=== PATIENT | female | born 1970 | race Caucasian/White ===

== ENCOUNTER 2019-04-25 01:05 | Emergency (ER) | payer OTHER ==
[~2019-04-25] VITALS: Ht 160 cm; Wt 70.3 kg
[2019-04-25 01:23] VITALS: BP 153/77
--- NOTE | 2019-04-25 01:23 | NUR ---
ABD: TENDERNESS ON RIGH AND EPIGASTRIC REGION, ACITVE BS, SOFT, ROUND.
--- NOTE | 2019-04-25 01:23 | NUR ---
JAZIEL C/O LEFT BACK AND ABD PAIN X 1 WEEK. PT GOT D/C FROM [facility] TODAY AND SAID SHE WAS STILL HAVING PAIN. Mar WENT TO [facility] FOR FEVER, PAIN AND WAS SENT HOME WITH TYLENOL EXTRA STRENTH AND IBUPROFEN AND WAS ADVICE TO TAKE THEM AT THE SAME TIME AND ENDED UP HAVING LIVER DAMAGE. THEN WENT TO [facility] FOR LEFT BACK AND ABD PAIN. DEEP. PMH:
[2019-04-25] MEDS ORDERED: MORPHINE SULFATE 4 MG/ML SYR IVP ONE (01:25)
[2019-04-25] MEDS ORDERED: ONDANSETRON 4 MG/2 ML VIAL IVP ONE (01:25)
[2019-04-25] MEDS ORDERED: NACL 0.9% 1,000 ML IV ONE (01:25)
[2019-04-25 01:46] LABS: HEMATOCRIT 25.6 % (36-48); MEAN CORPUSCULAR HEMOGLOBIN 19 pg (27-31); MEAN CORPUSCULAR HGB CONC 30 g/dL (33-37); MEAN CORPUSCULAR VOLUME 63.5 fL (80-94); PLATELET COUNT (AUTO) 436 K/uL (140-450); RED BLOOD CELL COUNT(AUTO) 4.04 MIL/uL (4.20-5.40); WHITE BLOOD COUNT (AUTO) 12.7 K/uL (4.8-10.8)
[2019-04-25 01:56] LABS: ANION GAP 10.6 (8-16); CARBON DIOXIDE 26.6 mmol/L (21-32); CREATININE 0.8 mg/dL (0.6-1.3); POTASSIUM 3.2 mmol/L (3.5-5.1)
[2019-04-25 02:04] LABS: ALBUMIN 2.3 g/dL (3.4-5.0); TOTAL BILIRUBIN 1.3 mg/dL (0.0-1.0)
[2019-04-25 02:16] LABS: HEMOGLOBIN 7.6 g/dL (12.0-16.0)
[2019-04-25 02:17] LABS: EOSINOPHILS % (MANUAL) 1 % (0-4); LYMPHOCYTES % (MANUAL) 16 % (20-46); MONOCYTES % (MANUAL) 15 % (5-12); RED CELL DISTRIBUTION WIDTH 20.4 % (11.6-13.7)
[2019-04-25] MEDS ORDERED: MAGNESIUM CITRATE 300 ML BTL PO ONE (03:00)
[2019-04-25] MEDS ORDERED: GLYCERIN ADULT 1 SUPP RC ONE (03:00)
--- NOTE | 2019-04-25 03:26 | NUR ---
Patient discharged with v/s stable. Written and verbal after care instructions given and explained. Patient alert, oriented and verbalized understanding of instructions. Wheel Chair Assisted with to car. All questions addressed prior to discharge. ID band removed. Patient advised to follow up with PMD. Rx of OXYCODONE, ZOFRAN, GOLYTELY given. Patient educated on indication of medication including possible reaction and side effects. Opportunity to ask questions provided and answered.
--- NOTE | 2019-04-25 08:52 | NUR ---
Late entry. Confirmed with RN that 0.9 NS IV completed at 0322
[2019-04-25] MEDS ORDERED: TRAM50TA1 PO (12:15)
[2019-04-25] MEDS ORDERED: MEX2.5 PO (12:15)
[2019-04-25] MEDS ORDERED: GABA300C PO (12:15)
[2019-04-25] MEDS ORDERED: MELO15TA11 PO (12:15)
[2019-04-25] MEDS ORDERED: FOLI1TAB90 PO (12:15)
== END 2019-04-25 03:26 | disposition home or self-care (01) ==
LOC: MED 01:05
DX: K59.00 Constipation, unspecified (principal); Z79.899 Other long term (current) drug therapy
CPT/HCPCS: 36415; 74022; 80053; 83690; 84702; 85025; 96374; 96375; 99284; J2270; J2405; J7030

== ENCOUNTER 2019-04-25 09:19 | Inpatient (IN) | payer OTHER ==
[~2019-04-25] VITALS: Ht 160 cm; Wt 70.3 kg
[2019-04-25 09:22] VITALS: BP 153/81
--- NOTE | 2019-04-25 09:26 | NUR ---
Patient transferred to bed 1 via wheelchair by tech. RN evaluating patient at bedside.
--- NOTE | 2019-04-25 09:31 | NUR ---
48/F BIB FAMILY C/O N/V & LUQ PAIN RADIATING TO EPIGASTRIC REGION X 0400. SEEN HERE AT 1.28 AM TODAY WITH SAME S/S. LAST BM 7 DAYS AGO. PATIENT STATES PAIN OF 10/10 AT THIS TIME. PATIENT POSITIONED FOR COMFORT; HOB ELEVATED; BEDRAILS UP X1; BED DOWN. ER MD MADE AWARE OF PT STATUS.
[2019-04-25] MEDS ORDERED: NACL 0.9% 1,000 ML IV ONE (09:50)
[2019-04-25] MEDS ORDERED: MORPHINE SULFATE 4 MG/ML SYR IVP ONE (09:50)
[2019-04-25] MEDS ORDERED: FAMOTIDINE 20 MG/2 ML VIAL IVP ONE (09:50)
--- NOTE | 2019-04-25 10:22 | NUR ---
PT TAKEN TO CT VIA W/C, ACCOMPANIED BY BIODIESEL ENGINE SPECIALIST.
--- NOTE | 2019-04-25 10:34 | NUR ---
Patient returned from CT scan. RN re-evaluating patient at bedside.
[2019-04-25] MEDS ORDERED: MORPHINE SULFATE 5 MG/ML VIAL IVP ONE (12:05)
[2019-04-25] MEDS ORDERED: FOLI1TAB90 PO (12:15)
[2019-04-25] MEDS ORDERED: TRAM50TA1 PO (12:15)
[2019-04-25] MEDS ORDERED: MEX2.5 PO (12:15)
[2019-04-25] MEDS ORDERED: MELO15TA11 PO (12:15)
[2019-04-25] MEDS ORDERED: GABA300C PO (12:15)
[2019-04-25] MEDS ORDERED: GABAPENTIN 300 MG CAP PO PRN (12:55)
[2019-04-25] MEDS ORDERED: ALUMINUM HYD/MAG/SIMETHICONE 30 ML UDC PO PRN (13:00)
[2019-04-25] MEDS ORDERED: BISACODYL 10 MG SUPP RC PRN (13:00)
[2019-04-25] MEDS ORDERED: guaiFENesin DM 200/20 MG-10 ML 10 ML UDC PO PRN (13:00)
[2019-04-25] MEDS ORDERED: IPRATROPIUM 0.02% 0.5 MG/2.5 ML NEBU INH PRN (13:00)
[2019-04-25] MEDS ORDERED: DOCUSATE SODIUM 250 MG GELCAP PO PRN (13:00)
[2019-04-25] MEDS ORDERED: ACETAMINOPHEN 325 MG TAB PO PRN (13:00)
[2019-04-25] MEDS ORDERED: cloNIDine 0.1 MG TAB PO PRN (13:00)
[2019-04-25] MEDS ORDERED: POTASSIUM CHLORIDE 10 MEQ TABER PO PRN (13:00)
[2019-04-25] MEDS ORDERED: diphenhydrAMINE 50 MG/ML VIAL IVP PRN (13:00)
[2019-04-25] MEDS ORDERED: MAG SULF 2000 MG/WATER PREMIX 50 ML IV PRN (13:00)
[2019-04-25] MEDS ORDERED: SODIUM PHOSPHATE 118 ML ENEM RC PRN (13:00)
[2019-04-25] MEDS ORDERED: ZOLPIDEM 5 MG TAB PO PRN (13:00)
[2019-04-25] MEDS ORDERED: MORPHINE SULFATE 2 MG/ML SYR IVP PRN (13:00)
[2019-04-25] MEDS ORDERED: MAGNESIUM OXIDE 400 MG TAB PO PRN (13:00)
[2019-04-25] MEDS ORDERED: ALBUTEROL 0.083% 2.5 MG/3 ML NEBU INH PRN (13:00)
[2019-04-25] MEDS ORDERED: LORazepam 2 MG/ML VIAL IVP PRN (13:00)
[2019-04-25] MEDS ORDERED: HYDROcodone/APAP 5/325 MG 1 TAB TAB PO PRN (13:00)
[2019-04-25] MEDS ORDERED: ACETAMINOPHEN 650 MG SUPP RC PRN (13:00)
[2019-04-25 13:02] VITALS: BP 151/85
--- NOTE | 2019-04-25 13:02 | NUR ---
Patient will be admitted to care of DR QUINTANA. Admited to MS. Will go to room 119B. Belongings list completed. Report to HETAL CASE.
--- NOTE | 2019-04-25 13:02 | NUR ---
RECEIVED REPORT FROM RAMOS MEDINA RN. PATIENT ARRIVED FROM ER VIA W/C. PATIENT DX: ABDOMINAL PAIN. PATIENT IS ALERT, AWAKE AND ORIENTED X4. PER ADAM PT RECEIVED 2 DOSES OF MORPHINE IN THE ER FOR SEVERE PAIN. IV INTACT AND PATENT TO LEFT AC. PATIENT'S SKIN INTACT. BED IN LOW POSITION. SAFETY MEASURES IN PLACE. CALL LIGHT WITHIN REACH.
[2019-04-25] MEDS: PANTOPRAZOLE 40 MG TABEC PO SCH (14:00)
--- NOTE | 2019-04-25 14:00 | NUR ---
DC PLANN[age] YRS OLD FEMALE PT WAS ADMITTED FROM HOME WITH A DX OF ABDOMINAL PAIN. PT HAS NO MEDICAL HX AND JUST RELEASED FROM [facility]. CT ABD/PELVIS SHOWED DIVERTICULITIS. ADMINISTERED IVF, PAIN MEDS AND ZOFRAN. DC PLAN TO GO HOME WHEN STABLE. CM TO FOLLOW. Addendum: 04/26/19 at 1123 by Mayelin López CM DC PLANNING: GI CONSULT WITH DR ORTIZ , KEPT PT NPO EGD TODAY .DC PLAN TO GO HOME WHEN STABLE CM TO FOLLOW. Addendum: 04/28/19 at 1610 by Desiree Petersen CM S/P COLONOSCOPY 04/25/2019 RE: DIVERTICULOSIS OF THE COLON. FOR DC HOME TODAY.
--- NOTE | 2019-04-25 15:00 | NUR ---
PATIENT RECEIVED MORPHINE IVP FOR SEVERE ABDOMINAL PAIN. WILL CONTINUE TO MONITOR FOR PAIN MANAGEMENT. PATIENT [id number]. DAUGHTER AT BEDSIDE. CALL LIGHT WITHIN REACH.
[2019-04-25 16:00] VITALS: BP 140/87
--- NOTE | 2019-04-25 17:00 | NUR ---
DR. QUINTANA AT BEDSIDE.
[2019-04-25] MEDS: HYDROmorphone 1 MG/ML AMP IVP PRN ×3 (17:27→21:27)
[2019-04-25] MEDS: ONDANSETRON 4 MG/2 ML VIAL IVP PRN (18:07)
[2019-04-25] MEDS: DEXT 5% /NACL 0.9% 1,000 ML IV SCH (18:07)
--- NOTE | 2019-04-25 18:51 | NUR ---
PATIENT IN STABLE CONDITION. MEDICATED FOR PAIN WITH DILAUDID IVP ORDERED. WILL ENDORSE TO NIGHT NURSE FOR CONTINUITY OF CARE.
--- NOTE | 2019-04-25 19:20 | NUR ---
RECEIVED REPORT FROM DAYSHIFT NURSE AT PATIENTS BEDSIDE. PATIENT AWAKE AND ALERT AND BENDING OVER IN PAIN, MOANING AND RUBBING STOMACH.ASSISTED WITH REPOSITIONING. ON ROOM AIR, LUNG SOUNDS CLEAR. GENERAL ABDOMEN IS TENDER TO TOUCH, NONDISTENDED, SOFT. BOWEL SOUNDS ARE HYPOACTIVE, PATIENT COMPLAINING OF CONSTIPATION. LEFT AC PERIPHRAL IV, 20G, FLUSHED AND PATENT. IV FLUIDS INFUSING-D5NS @ 50ML/HR. SKIN IS WARM AND DRY, ALL VITALS WITHIN NORMAL LIMITS. UPDATED ON CARE PLAN AND NPO STATUS AFTER MIDNIGHT, ORIENTED TO CALL LIGHT, VERBALIZES UNDERSTANDING. WILL FOLLOWUP WITH PAIN ASSESSMENT.
[2019-04-25 20:00] VITALS: BP 143/78
--- NOTE | 2019-04-25 21:30 | NUR ---
PATIENT GIVEN IVP DILAUDID ORDERED. PATIENT BACK IN BED AND RESTING, FACIAL GRIMACING NOTED. DAUGHTER AT BEDSIDE. ALL NEEDS MET AT THIS TIME.
--- NOTE | 2019-04-25 23:10 | NUR ---
PATIENT UP AND OUT OF BED TO USE THE RESTROOM, HAD A LARGE BOWEL MOVEMENT FINALLY BUT ALERTS RN THAT SHE NEEDS TO GO MORE. BACK IN BED WITH IV FLUIDS INFUSING, CALL LIGHT WITHIN REACH, BRANDANAILS UPx2.
[2019-04-26] VITALS: BP 138/98
--- NOTE | 2019-04-26 00:40 | NUR ---
PATIENT SEEN TAKING LAPS ON UNIT, PATIENT WALKING WITH IV POLE, IV FLUIDS CONTINUOUSLY INFUSING. GAIT IS NORMAL, PATIENT STATES PAIN IS NOT BAD. NO INCIDENTS NOTED, WILL CONTINUE TO MONITOR.
[2019-04-26] MEDS: HYDROmorphone 1 MG/ML AMP IVP PRN ×6 (01:27→23:16)
--- NOTE | 2019-04-26 02:11 | NUR ---
PATIENT RESTING WELL ON CHAIR AT BEDSIDE, EYES CLOSED, MOANING A LITTLE, IVP DILAUDID WAS GIVEN. PATIENT ABLE TO SELF TURN AND REPOSITION. NPO AT MIDNIGHT SIGN IN PLACE AND ALL FOOD/BEVERAGES TAKEN FROM BEDSIDE.
--- NOTE | 2019-04-26 02:32 | NUR ---
PATIENT AWAKE AND UP WALKING LAPS AROUND UNIT. STATES THE WALKING DISTRACTS HER FROM THE PAIN. NO INJURIES/INCIDENTS NOTED.
--- NOTE | 2019-04-26 03:50 | NUR ---
PER CHARGE NURSE, PATIENT ABLE TO HAVE PO MEDS WITH NPO AFTER MIDNIGHT STATUS, CONFIRMED SMALL SIP OF WATER OK TO TAKE WITH MEDS. WILL CARRY OUT.
[2019-04-26 04:00] VITALS: BP 152/97
[2019-04-26] MEDS: HYDROcodone/APAP 5/325 MG 1 TAB TAB PO PRN ×2 (04:56→09:14)
--- NOTE | 2019-04-26 05:40 | NUR ---
PATIENT GIVEN IVP DILAUDID FOR PAIN. PATIENT CONTINUES TO CRY/MOAN OUT LOUD. HAS HOME CREAM FROM HOME THAT SHE APPLIED TO STOMACH. PATIENT ABLE TO PASS STOOLS BUT ABDOMEN STILL LARGE AND TENDER. POSITIONED PATIENT FOR COMFORT. CALL LIGHT WITHIN REACH
--- NOTE | 2019-04-26 07:15 | NUR ---
RECEIVED BEDSIDE REPORT FROM ADVERTISING EXECUTIVE NURSE. PT IS AWAKE AND ALERT, C/O ABD PAIN AND ASKING ABOUT HER NEXT DOSE OF DILAUDID. WILL MEDICATE SOON APPROPRIATE. PT'S DAUGHTER IS AT BEDSIDE. PT IS AMBULATORY AND ABLE TO MAKE NEEDS KNOWN. ON ROOM AIR, SKIN IS INTACT. IV SITE L AC 20 G, INFUSING D5NS 50 ML/HR. CALL LIGHT WITHIN REACH.
[2019-04-26 08:00] VITALS: BP 137/87
--- NOTE | 2019-04-26 08:43 | NUR ---
PATIENT HAS BEEN SCREENED AND CATEGORIZED MODERATE NUTRITION RISK. PATIENT WILL BE SEEN WITHIN 3-5 DAYS OF ADMISSION. 04/28/19 04/30/[address]
[2019-04-26] MEDS: FOLIC ACID 1 MG TAB PO SCH (09:13)
[2019-04-26] MEDS: PANTOPRAZOLE 40 MG TABEC PO SCH (09:13)
--- NOTE | 2019-04-26 09:15 | NUR ---
PT C/O SEVERE ABD PAIN, PRN NORCO ADMINISTERED. WILL REASSESS WITHIN AN HOUR
[2019-04-26] MEDS ORDERED: fentaNYL 0.05 MG/ML VIAL ONE (12:22)
[2019-04-26] MEDS ORDERED: diphenhydrAMINE 50 MG/ML VIAL ONE (12:22)
--- NOTE | 2019-04-26 12:36 | NUR ---
PT TAKEN OFF UNIT FOR EGD.
[2019-04-26] MEDS: DEXT 5% /NACL 0.9% 1,000 ML IV SCH ×2 (12:43→23:24)
[2019-04-26] MEDS: MIDAZOLAM 2 MG/2 ML VIAL IVP ONE ×2 (12:45→13:38)
[2019-04-26] MEDS ORDERED: MIDAZOLAM 2 MG/2 ML VIAL ONE (12:45)
[2019-04-26] MEDS: fentaNYL 0.05 MG/ML VIAL IVP ONE ×2 (12:46→13:37)
--- NOTE | 2019-04-26 13:11 | NUR ---
LANDON assessment/discharge plan Name: Malini Zaldivar Home Relationship: daughter Pre-Admission Living Arrangements: Lives with Other Other: family Prior ADL Independent Current Home Health Name/Tel: N/A Current DME/02 Name/Tel: N/A Current Hospice Name/Tel: N/A Current Dialysis Name/Tel: N/A Healthcare Decision Maker: Patient Advance Directive No Information Taught: Advance Directive Person Taught: Patient Teaching Tools: Computer Generated Print Verbal Factors Affecting Learning: None Participation Level: Active Evaluation: Gestures Understanding Verbalizes Understanding Educator: LANDON Chowdary Discipline: Case Mgt/Social Svcs Tentative Discharge Plan Summary: Patient is a 48 year old female admitted for abdominal pain. I met with patient, patient's daughter Malini Ramon, and patient's mother Angelica Jamison at bedside. Patient alert and oriented x4. Patient lives at home with her family and plans to return home upon discharge. Patient goes to [facility] for medical care ([place], [place]) and does not have any difficulty filling her prescription. She has a hx of mental health. She reported one of her daughters was diagnosed with Bipolar and she is very familiar with counseling/mental health services. Patient and patient's family do not have any questions/concerns at this time. Hosiery Bagger and/or Director Trade will follow up as needed. Signature: LANDON Chowdary Date: Apr 26, 2019
--- NOTE | 2019-04-26 13:25 | NUR ---
PT IS BACK FROM EGD. TOLERATED PROCEDURE WELL. DENIES PAIN AT THIS TIME. VS UPON RETURN: BP 143/86, HR 92, O2 95% ON RA, RR 16, TEMP 98.7
[2019-04-26 13:35] VITALS: BP 143/86
--- NOTE | 2019-04-26 13:38 | NUR ---
PER DR ORTIZ, OK TO GIVE PT A REGULAR DIET.
[2019-04-26] MEDS ORDERED: EPINEPHrine PFS 0.1 MG/ML SYR IVP ONE (13:41)
--- NOTE | 2019-04-26 13:50 | NUR ---
PT SEEN BY DR QUINTANA
[2019-04-26] MEDS ORDERED: GABAPENTIN 100 MG CAP PO PRN (13:55)
--- NOTE | 2019-04-26 14:59 | NUR ---
OBTAINED CONSENT FOR COLONOSCOPY. PT EATING CLEAR LIQUID LUNCH AT THIS TIME.
--- NOTE | 2019-04-26 15:00 | NUR ---
GAVE PT A COLLECTION CUP AND COLLECTION HAT FOR URINE AND STOOL SAMPLES. PT AWARE THAT WE NEED BOTH SAMPLES.
[2019-04-26 16:00] VITALS: BP 139/85
[2019-04-26] MEDS: METOCLOPRAMIDE 10 MG/2 ML INJ VIAL IVP SCH (17:11)
[2019-04-26] MEDS: SENNA 8.6 MG TAB PO SCH (17:11)
--- NOTE | 2019-04-26 17:37 | NUR ---
URINE SAMPLE COLLECTED AND SENT TO LAB FOR UDS. PT UNABLE TO HAVE A BM SO FAR.
[2019-04-26 18:27] LABS: BARBITURATE, URINE NEG. ng/ml (NEG <=200); BENZODIAZEPINE, URINE POS. ng/mL (NEG <=200); CANNABINOID, URINE NEG. ng/mL (NEG <=50); COCAINE, URINE NEG. ng/mL (NEG <=300); OPIATE, URINE POS. ng/mL (NEG <=2000); PHENCYCLIDINE SCREEN,URINE NEG. ng/mL (NEG <=25)
--- NOTE | 2019-04-26 18:42 | NUR ---
PT RESTING COMFORTABLY AT THIS TIME. NO C/O PAIN OR DISTRESS. CONTINUING TO MONITOR.
--- NOTE | 2019-04-26 19:28 | NUR ---
PT ENDORSED TO AQUATIC ECOLOGIST NURSE IN STABLE CONDITION
--- NOTE | 2019-04-26 20:00 | NUR ---
PT WAS ENDORSE AT BEDSIDE, V/S FOLLOWS: T 98.4 P 98 R 18 B/P 137/76 02 98% ON ROOM AIR. PT FAMILY MEMBERS AT BEDSIDE. PT MOTHER SAID " MY DAUGHTER HAS SOME FLUIDS DUE!" PT MOTHER WAS RUDE AND DEMANDING TO PRIMARY NURSE, PT WAS REASSURED BY PRIMARY NURSE THAT SHE WILL RECEIVE THE CORRECT FLUIDS IN A TIMELY MANNER, PRIMARY NURSE ASKED TO PLEASE CHANGE ASSIGNMENTS DUE TO THE VERBAL ABUSE OF THE FAMILY MEMBER . ASSIGNMENT WAS GIVEN TO LAURI AT BEDSIDE.
--- NOTE | 2019-04-26 20:30 | NUR ---
RECEIVED BEDSIDE REPORT FROM MARKETING SUPPORT SPECIALIST RN FOR PT'S CONTINUITY OF CARE. PT IS IN BED, C/O PAIN, AND N/V. PT IS AAOX4, ON ROOM AIR, HAS LEFT AC 20G WITH D5NS AT 100ML/HR, INFORMED PT RE: PAIN MEDICATION SCHEDULE, AND ANTIEMETIC MEDS. PT VERBALIZED UNDERSTANDING. WILL MONITOR PT THROUGHOUT SHIFT.
[2019-04-26] MEDS: SUPREP BOWEL PREP KIT 354 ML SOLN.RECON PO SCH (20:43)
--- NOTE | 2019-04-26 20:48 | NUR ---
ADMINISTERED SCHEDULED BOWEL PREP SOLUTION ORDERED. PT TEACHING AND INSTRUCTIONS GIVEN, PT VERBALIZED UNDERSTANDING.
--- NOTE | 2019-04-26 21:00 | NUR ---
PT VOMITED LARGE AMOUNT OF FLUID, SUSPECTED TO BE THE BOWEL PREP GIVEN. WILL INFORM MD AND WAIT FOR FURTHER ORDERS.
--- NOTE | 2019-04-26 21:30 | NUR ---
COLLECTED STOOL SAMPLE FOR OCCULT BLOOD TEST.
[2019-04-26] MEDS: ONDANSETRON 4 MG/2 ML VIAL IVP PRN (21:41)
[2019-04-26] MEDS: AMITRIPTYLINE 25 MG TAB PO SCH (21:42)
[2019-04-26] MEDS: POLYETHYLENE GLYCOL 17 GM/PKT PO SCH (21:42)
[2019-04-26] MEDS ORDERED: METOCLOPRAMIDE 10 MG/2 ML INJ VIAL IVP SCH (22:35)
--- NOTE | 2019-04-26 23:00 | NUR ---
PAGED DR ORTIZ FOR VOMITUS X 4 AND VOMITED THE BOWEL PREP AN HOUR AFTER DRINKING IT. PAGED CHIEF FUNDRAISING OFFICER FOR PT'S REQUEST FOR CHANGEIN FREQUENCY OF PAIN MEDICATION.
--- NOTE | 2019-04-26 23:15 | NUR ---
DR ORTIZ AND DR JENNINGS CALLED FOR NEW ORDERS. ADMINISTERED NEW ORDERS OF REGLAN AND IVP PAIN MEDICATION. PER DR ORTIZ, GIVE REGLAN FIRST, WAIT TO GIVE THE NEXT BOWEL PREP AND INSTRUCT PT TO DRINK SLOWLY AND INTERMITTENTLY, IF PT DOES NOT TOLERATE ANY FLUIDS, DO NOT GIVE ANY MORE OF THE BOWEL PREP. PT TEACHING GIVEN, PT VERBALIZED UNDERSTANDING.
[2019-04-27] VITALS: BP 123/70
--- NOTE | 2019-04-27 00:50 | NUR ---
VS CHECKED AND CHARTED. PT ASLEEP WITH NO SIGNS OF DISTRESS. NO VOMITUS SINCE THE LAST ADMINISTRATION OF REGLAN, PER SISTER. WILL CONTINUE TO MONITOR PT.
--- NOTE | 2019-04-27 02:30 | NUR ---
MADE ROUNDS. PT ASLEEP WITH NO SIGNS OF PAIN OR DISTRESS. PER PT'S SISTER, PT HASN'T HAD ANY VOMITING. WILL CONTINUE TO MONITOR PT.
[2019-04-27] MEDS: HYDROmorphone 1 MG/ML AMP IVP PRN ×2 (03:49→08:12)
--- NOTE | 2019-04-27 03:49 | NUR ---
PT USED THE RESTROOM, STATES STOOL CONSISTENCY IS LIKE DIARRHEA. C/O PAIN, ADMINISTERED PRN IVP PAIN MEDICATION ORDERED. EXPLAINED TO PT THAT ANOTHER BOWEL PREP SOLUTION WILL BE TRIED OUT TO SEE IF SHE COULD TOLERATE IT. PT VERBALIZED UNDERSTANDING.
--- NOTE | 2019-04-27 05:00 | NUR ---
PT GIVEN THE 2ND DOSE OF BOWEL PREP. PT TOLERATING IT. PAIN IS REDUCED.
[2019-04-27] MEDS: METOCLOPRAMIDE 10 MG/2 ML INJ VIAL IVP SCH (05:43)
[2019-04-27] MEDS: SUPREP BOWEL PREP KIT 354 ML SOLN.RECON PO SCH (05:44)
--- NOTE | 2019-04-27 06:30 | NUR ---
PT STATES STOOL IS OF LIGHT CONSISTENCY, URINE LIKE COLOR. PT TOLERATING WATER INTAKE AFTER THE BOWEL PREP. PT STATES PAIN IS INCREASING. WILL ENDORSE TO AM SHIFT RN FOR PT'S CONTINUITY OF CARE.
--- NOTE | 2019-04-27 07:15 | NUR ---
RECEIVED REPORT FROM AUTOMATION/CONTROLS MANAGER NURSE LAURI FOR CONTINUITY OF CARE. PT IN STABLE CONDITION. RESPIRATIONS EVEN AND UNLABORED, ROOM AIR. IV INTACT AND PATENT. SAFETY MEASURES IN PLACE. BED IN LOW POSITION. CALL LIGHT AT BEDSIDE. WILL CONTINUE TO MONITOR.
[2019-04-27 07:57] LABS: ALBUMIN 2.4 g/dL (3.4-5.0); ANION GAP 11.9 (8-16); CARBON DIOXIDE 24.8 mmol/L (21-32); CREATININE 0.7 mg/dL (0.6-1.3); POTASSIUM 3.7 mmol/L (3.5-5.1); TOTAL BILIRUBIN 1.2 mg/dL (0.0-1.0)
[2019-04-27 08:00] VITALS: BP 136/86
[2019-04-27 08:04] LABS: ALBUMIN 2.4 g/dL (3.4-5.0); BILIRUBIN,DIRECT 0.5 mg/dL (0.0-0.3); TOTAL BILIRUBIN 1.2 mg/dL (0.0-1.0)
[2019-04-27 08:10] LABS: HEMATOCRIT 24.6 % (36-48); HEMOGLOBIN 7.4 g/dL (12.0-16.0); MEAN CORPUSCULAR HEMOGLOBIN 20 pg (27-31); MEAN CORPUSCULAR HGB CONC 30 g/dL (33-37); PLATELET COUNT (AUTO) 636 K/uL (140-450); RED BLOOD CELL COUNT(AUTO) 3.79 MIL/uL (4.20-5.40); RED CELL DISTRIBUTION WIDTH 20.6 % (11.6-13.7); WHITE BLOOD COUNT (AUTO) 12.3 K/uL (4.8-10.8)
[2019-04-27] MEDS: POLYETHYLENE GLYCOL 17 GM/PKT PO SCH ×2 (08:12→12:32)
[2019-04-27] MEDS: SENNA 8.6 MG TAB PO SCH (08:12)
[2019-04-27] MEDS: FOLIC ACID 1 MG TAB PO SCH (08:12)
--- NOTE | 2019-04-27 08:20 | NUR ---
GAVE ORDERED DUE MEDICATIONS AT THIS TIME. PT TOLERATED WELL. WILL CONTINUE TO MONITOR.
[2019-04-27 09:36] LABS: EOSINOPHILS % (MANUAL) 2 % (0-4); LYMPHOCYTES % (MANUAL) 24 % (20-46); MONOCYTES % (MANUAL) 12 % (5-12)
[2019-04-27] MEDS: DEXT 5% /NACL 0.9% 1,000 ML IV SCH (09:42)
--- NOTE | 2019-04-27 09:45 | NUR ---
NEW IV PLACED 22G LEFT HAND. PT TOLERATED WELL.
[2019-04-27] MEDS ORDERED: diphenhydrAMINE 50 MG/ML VIAL ONE (10:18)
[2019-04-27] MEDS ORDERED: fentaNYL 0.05 MG/ML VIAL ONE (10:18)
[2019-04-27] MEDS ORDERED: MIDAZOLAM 2 MG/2 ML VIAL ONE (10:19)
--- NOTE | 2019-04-27 10:45 | NUR ---
OFF UNIT FOR COLONOSCOPY. PT IN STABLE CONDITION.
[2019-04-27] MEDS ORDERED: MIDAZOLAM 2 MG/2 ML VIAL IVP ONE (11:05)
[2019-04-27] MEDS ORDERED: fentaNYL 0.05 MG/ML VIAL IVP ONE (11:07)
--- NOTE | 2019-04-27 11:45 | NUR ---
PT BACK ON UNIT AFTER COLONOSCOPY. PT IN STABLE CONDITION.
--- NOTE | 2019-04-27 11:55 | NUR ---
TAE DUBOSE DR., D.O. MORPHINE IVP 4MG Q3 FOR PAIN.
[2019-04-27] MEDS ORDERED: MORPHINE SULFATE 4 MG/ML SYR ONE (12:18)
[2019-04-27] MEDS: FERROUS SULFATE 325 MG TABEC PO SCH ×2 (12:27→17:36)
--- NOTE | 2019-04-27 13:33 | NUR ---
PT TALKING WITH FAMILY. RESPIRATIONS EVEN AND UNLABORED. BED IN LOW POSITION. CALL LIGHT AT BEDSIDE. WILL CONTINUE TO MONITOR.
--- NOTE | 2019-04-27 15:44 | NUR ---
PT SLEEPING AT THIS TIME. RESPIRATIONS EVEN AND UNLABORED. BED IN LOW POSITION. CALL LIGHT AT BEDSIDE. WILL CONTINUE TO MONITOR.
[2019-04-27 16:00] VITALS: BP 119/77
--- NOTE | 2019-04-27 18:15 | NUR ---
PT SITTING UP IN BED IN STABLE CONDITION. TALKING TO FAMILY. RESPIRATIONS EVEN AND UNLABORED. BED IN LOW POSITION. CALL LIGHT AT BEDSIDE. WILL CONTINUE TO MONITOR.
--- NOTE | 2019-04-27 19:29 | NUR ---
RECEIVED PT ON ROOM AIR WITH AN SP02 OF 97% AND CLEAR BREATH SOUNDS. NO RESPIRATORY DISTRESS NOTED AT THIS TIME; HR 94 AND RR 20. HHN PRN TX NOT GIVEN. WILL CONTINUE TO MONITOR PT.
--- NOTE | 2019-04-27 19:30 | NUR ---
GAVE REPORT TO PUBLIC RELATIONS WRITER NURSE KISSBOB FOR CONTINUITY OF CARE. PT IN STABLE CONDITION.
--- NOTE | 2019-04-27 19:32 | NUR ---
RECEIVED REPORT FROM AM SHIFT NURSE JOAO IN STABLE CONDITION. MEDSURG PATIENT. RESPIRATIONS EVEN, UNLABORED. NO C/O PAIN. NO S/SX ACUTE DISTRESS. SKIN WARM, DRY, INTACT. IV SITE TO LEFT HAND 22G INTACT. CALL LIGHT WITHIN REACH. WILL CONTINUE TO MONITOR.
[2019-04-27] MEDS: MORPHINE SULFATE 4 MG/ML SYR IVP PRN (19:53)
--- NOTE | 2019-04-27 19:53 | NUR ---
PATIENT C/O ACHING ABDOMINAL PAIN 12/25, MEDICATED ORDERED. LOW STIMULI ENVIRONMENT AND LIGHTS DIMMED FOR COMFORT. CALL LIGHT WITHIN REACH. WILL CONTINUE TO MONITOR.
[2019-04-27] MEDS: AMITRIPTYLINE 25 MG TAB PO SCH (20:03)
--- NOTE | 2019-04-27 20:53 | NUR ---
REASSESSED PAIN LEVEL; PATIENT IS ASLEEP. NO S/SX ACUTE DISTRESS. CALL LIGHT WITHIN REACH. WILL CONTINUE TO MONITOR.
--- NOTE | 2019-04-27 21:10 | NUR ---
PATIENT IN STABLE CONDITION. DUE MEDS GIVEN. NO S/SX ACUTE DISTRESS. CALL LIGHT WITHIN REACH. WILL CONTINUE TO MONITOR.
--- NOTE | 2019-04-27 23:37 | NUR ---
MADE ROUNDS. PATIENT ASLEEP. NO S/SX ACUTE DISTRESS. CALL LIGHT WITHIN REACH. WILL CONTINUE TO MONITOR.
[2019-04-28] VITALS: BP 136/81
[2019-04-28] MEDS: MORPHINE SULFATE 4 MG/ML SYR IVP PRN ×3 (00:12→12:49)
--- NOTE | 2019-04-28 00:12 | NUR ---
PATIENT C/O ACHING ABDOMINAL PAIN 12/25. MEDICATED ORDERED. CALL LIGHT WITHIN REACH. WILL CONTINUE TO MONITOR.
--- NOTE | 2019-04-28 01:12 | NUR ---
REASSESSED PAIN, PATIENT IS ASLEEP. RESPIRATIONS EVEN, UNLABORED. NO S/SX ACUTE DISTRESS NOTED. CALL LIGHT WITHIN REACH. WILL CONTINUE TO MONITOR.
--- NOTE | 2019-04-28 03:37 | NUR ---
MADE ROUNDS. PATIENT IS ASLEEP. NO S/SX ACUTE DISTRESS. CALL LIGHT WITHIN REACH. WILL CONTINUE TO MONITOR.
--- NOTE | 2019-04-28 05:19 | NUR ---
PATIENT CONTINUES IN STABLE CONDITION. NO S/SX ACUTE DISTRESS. NO C/O PAIN. CALL LIGHT WITHIN REACH. WILL CONTINUE TO MONITOR.
[2019-04-28 05:46] LABS: BASOPHILS # (AUTO) 0.1 K/uL (0.00-0.22); BASOPHILS % (AUTO) 1.2 % (0.0-2.0); EOSINOPHILS # (AUTO) 0.2 K/uL (0-0.4); EOSINOPHILS % (AUTO) 1.9 % (0.0-4.0); HEMATOCRIT 23.2 % (36-48); LYMPHOCYTES # (AUTO) 3.2 K/uL (2.5-16.5); LYMPHOCYTES % (AUTO) 33.6 % (20.5-51.1); MEAN CORPUSCULAR HEMOGLOBIN 20 pg (27-31); MEAN CORPUSCULAR HGB CONC 30 g/dL (33-37); MEAN CORPUSCULAR VOLUME 65.3 fL (80-94); MONOCYTES # (AUTO) 1.4 K/uL (0.8-1.0); MONOCYTES % (AUTO) 14.5 % (1.7-9.3); NEUTROPHILS # (AUTO) 4.6 K/uL (1.8-7.7); NEUTROPHILS % (AUTO) 48.8 % (42.2-75.2); PLATELET COUNT (AUTO) 631 K/uL (140-450); RED BLOOD CELL COUNT(AUTO) 3.55 MIL/uL (4.20-5.40); RED CELL DISTRIBUTION WIDTH 21.5 % (11.6-13.7); WHITE BLOOD COUNT (AUTO) 9.4 K/uL (4.8-10.8)
[2019-04-28 06:11] LABS: ALBUMIN 2.2 g/dL (3.4-5.0); ANION GAP 9.3 (8-16); CARBON DIOXIDE 26.3 mmol/L (21-32); CREATININE 0.7 mg/dL (0.6-1.3); POTASSIUM 3.6 mmol/L (3.5-5.1); TOTAL BILIRUBIN 0.8 mg/dL (0.0-1.0)
--- NOTE | 2019-04-28 07:10 | NUR ---
ENDORSED PATIENT IN STABLE CONDITION TO AM SHIFT NURSE JOAO FOR CONTINUITY OF CARE.
--- NOTE | 2019-04-28 07:11 | NUR ---
RECEIVED REPORT FROM PEDIATRIC DIETICIAN NURSE ASPEN FOR CONTINUITY OF CARE. PT IN STABLE CONDITION. RESPIRATIONS EVEN AND UNLABORED, ROOM AIR. IV INTACT AND PATENT. SAFETY MEASURES IN PLACE. BED IN LOW POSITION. CALL LIGHT AT BEDSIDE. WILL CONTINUE TO MONITOR.
[2019-04-28 08:00] VITALS: BP 123/71
[2019-04-28] MEDS: FERROUS SULFATE 325 MG TABEC PO SCH ×2 (08:37→12:49)
[2019-04-28] MEDS: POLYETHYLENE GLYCOL 17 GM/PKT PO SCH (08:38)
[2019-04-28] MEDS: FOLIC ACID 1 MG TAB PO SCH (08:38)
--- NOTE | 2019-04-28 08:38 | NUR ---
GAVE ORDERED DUE MEDICATIONS AT THIS TIME. PT TOLERATED WELL. WILL CONTINUE TO MONITOR.
--- NOTE | 2019-04-28 10:19 | NUR ---
PT TALKING WITH FAMILY AT BEDSIDE. RESPIRATIONS EVEN AND UNLABORED. BED IN LOW POSITION. CALL LIGHT AT BEDSIDE. WILL CONTINUE TO MONITOR.
--- NOTE | 2019-04-28 12:13 | NUR ---
PT LYING IN BED SLEEPING AT THIS TIME. RESPIRATIONS EVEN AND UNLABORED. BED IN LOW POSITION. CALL LIGHT AT BEDSIDE. WILL CONTINUE TO MONITOR.
--- NOTE | 2019-04-28 14:10 | NUR ---
PT SITTING UP IN BED WATCHING TV AT THIS TIME. RESPIRATIONS EVEN AND UNLABORED. BED IN LOW POSITION. CALL LIGHT AT BEDSIDE. WILL CONTINUE TO MONITOR.
[2019-04-28] MEDS ORDERED: ESOM20EC PO ×2 (15:49→15:51)
--- NOTE | 2019-04-28 16:10 | NUR ---
GAVE DISCHARGE INSTRUCTIONS AND PRESCRIPTION TO TAKE TO HOME PHARMACY. PT VERBALIZED UNDERSTANDING OF INSTRUCTIONS. REMOVED IV, LUMEN INTACT. REMOVED ID BAND. PT WHEELED TO LOBBY IN WHEELCHAIR WHERE FAMILY WAITING WITH VEHICLE. PT IN STABLE CONDITION.
--- NOTE | 2019-05-01 15:58 | NUR ---
PCP Appointment: QUINCY contacted patient to provide hospital follow up with [facility]. Patient stated she visited her PCP at 1345 on 04/30/2019. No further needs identified.
== END 2019-04-28 16:10 | disposition home or self-care (01) | DRG 282 ==
LOC: MED 09:19 → MTU 12:10
PROVIDERS: ADMIT Internal Medicine Pulmonary Disease; ATTEND Internal Medicine Pulmonary Disease
PROC: 0DB68ZX Excision of Stomach, Via Natural or Artificial Opening Endoscopic, Diagnostic (ICD-10-PCS; principal; 2019-04-26 15:50)
PROC: 0DJD8ZZ Inspection of Lower Intestinal Tract, Via Natural or Artificial Opening Endoscopic (ICD-10-PCS; 2019-04-27)
DX: K85.90 Acute pancreatitis without necrosis or infection, unspecified (principal); K75.89 Other specified inflammatory liver diseases; K76.0 Fatty (change of) liver, not elsewhere classified; E44.1 Mild protein-calorie malnutrition; D50.9 Iron deficiency anemia, unspecified; K57.30 Diverticulosis of large intestine without perforation or abscess without bleeding; M06.9 Rheumatoid arthritis, unspecified; G89.4 Chronic pain syndrome; T45.1X5A Adverse effect of antineoplastic and immunosuppressive drugs, initial encounter; Z79.899 Other long term (current) drug therapy; Z90.49 Acquired absence of other specified parts of digestive tract; Y92.89 Other specified places as the place of occurrence of the external cause
CPT/HCPCS: 36415; 80053; 80076; 80305; 82272; 83690; 85025; 86677; 87081; 96361; 96374; 96375; 96376; 99285; J0171; J1170; J1200; J2250; J2270; J2405; J2765; J3010; J3475; J3490; J7030; J7042